=== PATIENT | female | born 1985 | race American Indian/Alaskan Native ===

== ENCOUNTER 2017-06-21 21:48 | Inpatient (IN) | payer MEDICAID, MEDICARE, OTHER ==
[2017-06-21 21:48] VITALS: BMI 33.0
--- NOTE | 2017-06-21 22:39 | C.PDOC ---
History Of Present Illness 32 y/o female patient presents to the ER with pain and swelling in the left lower part of her leg. Patient had a chronic ulceration in her leg several years ago, and now noticed a second area anterior to the first that has developed into a nickel-sized abscess. Patient has a history of DVT in left lower leg going back to 2011 that developed after a , but it was never treated. Patient previously took blood thinners during second but stopped taking them after . Patient was last seen in October 2014 for leg swelling and was given Xarelto but never filled prescription. Patient has had other ER visits for suicidal ideation and has a Hx of schizophrenia and bipolar disorder. Time Seen by Provider: 06/21/17 22:08 Chief Complaint (Nursing): Abnormal Skin Integrity History Per: Patient History/Exam Limitations: no limitations Onset/Duration Of Symptoms: Days Current Symptoms Are (Timing): Still Present Location Of Injury: Left: Leg Recent travel outside of the [place]: No Past Medical History Reviewed: Historical Data, Nursing Documentation, Vital Signs Vital Signs: Last Vital Signs Temp 98.4 F 06/21/17 21:58 Pulse 97 H 06/21/17 21:58 Resp 20 06/21/17 21:58 BP 118/76 06/21/17 21:58 Pulse Ox 100 06/21/17 23:02 - Medical History PMH: Bipolar Disorder, Deep Vein Thrombosis, Schizophrenia Surgical History: No Surg Hx Family History: States: Unknown Family Hx - Social History Hx Tobacco Use: No Hx Alcohol Use: No (denies) Hx Substance Use: Yes (denies) - Immunization History Hx Tetanus Toxoid Vaccination: No Hx Influenza Vaccination: No Hx Pneumococcal Vaccination: No Review Of Systems Except As Marked, All Systems Reviewed And Found Negative. Constitutional: Negative for: Fever, Chills Cardiovascular: Negative for: Chest Pain Gastrointestinal: Negative for: Nausea, Vomiting Musculoskeletal: Positive for: Leg Pain (pain in lower left leg) Skin: Positive for: Other (swelling in left lower leg) Physical Exam - Physical Exam Appears: Non-toxic, No Acute Distress Skin: Normal Color, Warm, Dry Head: Atraumatic, Normacephalic Oral Mucosa: Moist Chest: Symmetrical Cardiovascular: Rhythm Regular Respiratory: Normal Breath Sounds Gastrointestinal/Abdominal: Soft, No Tenderness Extremity: Swelling Extremity: Left: Other (nickel sized abscess in left lower leg, leg is hot, diffusely tender, and red) Neurological/Psych: Oriented x3, Normal Speech, Normal Cognition ED Course And Treatment - Laboratory Results Result Diagrams: 06/21/17 23:56 Lab Interpretation: No Acute Changes O2 Sat by Pulse Oximetry: 100 (room air) Pulse Ox Interpretation: Normal Reevaluation Time: 00:33 Reassessment Condition: Unchanged - Physician Consult Information Time Consulting Physician Contacted: 00:33 Physician Contacted: Carlos Pastrana Outcome Of Conversation: Patient to be admitted for treatment of chronic leg wound and possible chronic DVT. Medical Decision Making Medical Decision Making: Plans-Blood tests Disposition - Disposition Disposition: HOSPITALIZED Disposition Time: 00:33 Condition: STABLE - Clinical Impression Clinical Impression: Cellulitis, Chronic ulcer of left leg, Left leg swelling
[2017-06-22 00:01] LABS: BASO % 0.3 % (0.0-2.0); EOS # 0.1 K/uL (0.0-0.7); EOS % 0.5 % (0.0-4.0); LYMPH # 1.9 K/uL (1.0-4.3); LYMPH % 17.7 % (20.0-40.0); MEAN CELL VOLUME 97.5 fL (81.0-99.0); MEAN CORPUSCULAR HEMOGLOBIN 32.5 pg (27.0-31.0); MEAN CORPUSCULAR HGB CONC 33.4 g/dL (33.0-37.0); MEAN PLATELET VOLUME 10.7 fL (7.2-11.7); MONO # 0.9 K/uL (0.0-0.8); MONO % 8.4 % (0.0-10.0); RED CELL DISTRIBUTION WIDTH 12.8 % (11.5-14.5); WHITE BLOOD COUNT 10.6 K/uL (4.8-10.8)
[2017-06-22 00:08] LABS: CHLORIDE 100 mmol/L (98-107); INR 1.1; POTASSIUM 3.5 mmol/L (3.6-5.2); SODIUM 139 mmol/L (132-148)
[2017-06-22 00:10] LABS: ALB/GLOB RATIO 1.2 (1.0-2.1); AST/SGOT 17 U/L (14-36); BILIRUBIN,TOTAL 0.7 mg/dL (0.2-1.3); CARBON DIOXIDE 25 mmol/L (22-30); GFR AFRICAN-AMERICAN > 60; TOTAL PROTEIN 8.3 g/dL (6.3-8.3)
[2017-06-22 00:11] LABS: ALKALINE PHOSPHATASE 70 U/L (38-126); ALT/SGPT 26 U/L (9-52); BLOOD UREA NITROGEN 9 mg/dL (7-17); CALCIUM 9.5 mg/dl (8.6-10.4); GLUCOSE,RANDOM 75 mg/dL (65-105)
[2017-06-22] MEDS ORDERED: Enoxaparin 40 mg Syringe SC STA (00:30)
[2017-06-22] MEDS: Clindamycin 600mg/50ml D5W 600 MG/50 ML VIAL IVPB SCH ×3 (02:00→13:38)
[2017-06-22 09:00] LABS: BASO % 0.4 % (0.0-2.0); EOS # 0.1 K/uL (0.0-0.7); EOS % 0.6 % (0.0-4.0); HEMATOCRIT 35.5 % (34.0-47.0); LYMPH # 1.5 K/uL (1.0-4.3); MEAN CELL VOLUME 97.5 fL (81.0-99.0); MEAN CORPUSCULAR HEMOGLOBIN 32.5 pg (27.0-31.0); MEAN CORPUSCULAR HGB CONC 33.3 g/dL (33.0-37.0); MEAN PLATELET VOLUME 11.3 fL (7.2-11.7); MONO # 0.9 K/uL (0.0-0.8); MONO % 9.9 % (0.0-10.0); RED CELL DISTRIBUTION WIDTH 12.9 % (11.5-14.5); WHITE BLOOD COUNT 8.9 K/uL (4.8-10.8)
[2017-06-22 09:17] LABS: CHLORIDE 100 mmol/L (98-107)
[2017-06-22 09:18] LABS: POTASSIUM 3.1 mmol/L (3.6-5.2); SODIUM 134 mmol/L (132-148)
[2017-06-22 09:20] LABS: ALB/GLOB RATIO 1.5 (1.0-2.1); ALKALINE PHOSPHATASE 68 U/L (38-126); AST/SGOT 16 U/L (14-36); BILIRUBIN,TOTAL 0.8 mg/dL (0.2-1.3); BLOOD UREA NITROGEN 8 mg/dL (7-17); CALCIUM 8.7 mg/dl (8.6-10.4); CARBON DIOXIDE 24 mmol/L (22-30); GFR AFRICAN-AMERICAN > 60; GLUCOSE,RANDOM 89 mg/dL (65-105); TOTAL PROTEIN 6.6 g/dL (6.3-8.3)
[2017-06-22 09:21] LABS: ALT/SGPT 24 U/L (9-52)
[2017-06-22] MEDS: Potassium Chloride 20 mEq ER Tab PO SCH ×3 (11:09→18:51)
[2017-06-22] MEDS: Acetaminophen-Codeine 300/30 mg Tab PO PRN ×2 (11:09→18:51)
--- NOTE | 2017-06-22 21:02 | CP.PCM.HP ---
History of Present Illness - History of Present Illness History of Present Illness: CC: Left leg pain HPI: 32 y/o AA female patient presents to the ER with pain and swelling in the left lower part of her leg. Patient had a chronic ulceration in her leg several years ago, and now noticed a second area anterior to the first that has developed into a nickel-sized abscess. Patient has a history of DVT in left lower leg going back to 2011 that developed after a , but it was never treated. Patient previously took blood thinners (Xeralto) during second but stopped taking them after . Patient was last seen in October 2014 for leg swelling and was given Xarelto but never filled prescription. Patient has had other ER visits for suicidal ideation and has a Hx of schizophrenia and bipolar disorder.Pt had h/o multiple hospitalizations. she denies any fever, chills, rigors Present on Admission - Present on Admission Any Indicators Present on Admission: Yes Review of Systems - Review of Systems Systems not reviewed;Unavailable: Acuity of Condition - Constitutional Constitutional: Fatigue, Fever, Lethargy, Weakness - EENT Eyes: absent: As Per HPI, Blind Spots, Blurred Vision, Change in Vision, Decreased Night Vision, Diplopia, Discharge, Dry Eye, Exophthalmos, Floaters, Irritation, Itchy Eyes, Loss of Peripheral Vision, Pain, Photophobia, Requires Corrective Lenses, Sees Flashes, Spots in Vision, Tunnel Vision, Other Visual Disturbances, Loss of Vision, Other Ears: absent: As Per HPI, Decreased Hearing, Ear Discharge, Ear Pain, Tinnitus, Abnormal Hearing, Disequilibrium, Dizziness, Other Nose/Mouth/Throat: absent: As Per HPI, Epistaxis, Nasal Congestion, Nasal Discharge, Nasal Obstruction, Nasal Trauma, Nose Pain, Post Nasal Drip, Sinus Pain, Sinus Pressure, Bleeding Gums, Change in Voice, Dental Pain, Dry Mouth, Dysphagia, Halitosis, Hoarsness, Lip Swelling, Mouth Lesions, Mouth Pain, Odynophagia, Sore Throat, Throat Swelling, Tongue Swelling, Facial Pain, Neck Pain, Neck Mass, Other - Cardiovascular Cardiovascular: Leg Edema - Respiratory Respiratory: absent: As Per HPI, Cough, Dyspnea, Hemoptysis, Dyspnea on Exertion , Wheezing, Snoring, Stridor, Pain on Inspiration, Chest Congestion, Excessive Mucous Production, Change in Mucous Color, Pain with Coughing, Other - Gastrointestinal Gastrointestinal: absent: As Per HPI, Abdominal Pain, Belching, Bloating, Change in Bowel Habits, Change in Stool Character, Coffee Ground Emesis, Constipation, Cramping, Diarrhea, Dyspepsia, Dysphagia, Early Satiety, Excessive Flatus, Fecal Incontinence, Heartburn, Hematemesis, Hematochezia, Loose Stools, Melena, Nausea, Odynophagia, Temesmus, Vomiting, Other Past Patient History - Infectious Disease Hx of Infectious Diseases: None - Past Medical History & Family History Past Medical History?: Yes - Past Social History Smoking Status: Light Smoker < 10 Cigarettes Daily - CARDIAC Hx Cardiac Disorders: No Hx Hypertension: No - PULMONARY Hx Respiratory Disorders: No Hx Tuberculosis: No - NEUROLOGICAL Hx Neurological Disorder: No Hx Seizures: No - HEENT Hx HEENT Problems: No - RENAL Hx Chronic Kidney Disease: No - ENDOCRINE/METABOLIC Hx Endocrine Disorders: No - HEMATOLOGICAL/ONCOLOGICAL Hx Blood Disorders: No Hx Human Immunodeficiency Virus (HIV): No - INTEGUMENTARY Hx Dermatological Problems: No - MUSCULOSKELETAL/RHEUMATOLOGICAL Hx Musculoskeletal Disorders: No Hx Falls: No - GASTROINTESTINAL Hx Gastrointestinal Disorders: No - GENITOURINARY/GYNECOLOGICAL Hx Genitourinary Disorders: No Hx Sexually Transmitted Disorders: No - PSYCHIATRIC Hx Psychophysiologic Disorder: No Hx Bipolar Disorder: Yes Hx Schizophrenia: Yes Hx Substance Use: Yes (denies) - SURGICAL HISTORY Hx Section: Yes (x5) - ANESTHESIA Hx Anesthesia: Yes Hx Anesthesia Reactions: No Hx Malignant Hyperthermia: No Meds Allergies/Adverse Reactions: Allergies Allergy/AdvReac Type Severity Reaction Status Date / Time No Known Allergies Allergy Verified 02/18/16 20:26 Physical Exam - Constitutional Appears: No Acute Distress - Head Exam Head Exam: ATRAUMATIC, NORMAL INSPECTION, NORMOCEPHALIC - Eye Exam Eye Exam: EOMI, Normal appearance, PERRL Pupil Exam: NORMAL ACCOMODATION, PERRL - Respiratory Exam Respiratory Exam: Clear to Auscultation Bilateral, NORMAL BREATHING PATTERN - Cardiovascular Exam Cardiovascular Exam: REGULAR RHYTHM, +S1, +S2 - GI/Abdominal Exam GI & Abdominal Exam: Normal Bowel Sounds, Soft. absent: Tenderness - Extremities Exam Extremities exam: Positive for: calf tenderness Additional comments: 1x1 ivch wound on left calf with chronic changes no discharge - Back Exam Back exam: NORMAL INSPECTION Results - Vital Signs Recent Vital Signs: Last Vital Signs Temp 97.7 F 06/22/17 15:00 Pulse 73 06/22/17 15:00 Resp 20 06/22/17 15:00 BP 112/72 06/22/17 15:00 Pulse Ox 98 06/22/17 15:00 - Labs Result Diagrams: 06/22/17 08:43 06/22/17 08:43 Labs: Laboratory Results - last 24 hr 06/21/17 06/21/17 06/21/17 23:56 23:56 23:56 WBC 10.6 RBC 3.80 Hgb 12.4 Hct 37.0 MCV 97.5 MCH 32.5 H MCHC 33.4 RDW 12.8 Plt Count 177 MPV 10.7 Neut % (Auto) 73.1 Lymph % (Auto) 17.7 L [place] % (Auto) 8.4 Eos % (Auto) 0.5 Baso % (Auto) 0.3 Neut # 7.8 H Lymph # 1.9 [place] # 0.9 H Eos # 0.1 Baso # 0.0 PT 12.4 H INR 1.1 D-Dimer, Quantitative < 200 Sodium 139 Potassium 3.5 L Chloride 100 Carbon Dioxide 25 Anion Gap 18 BUN 9 Creatinine 0.7 Est GFR ( Amer) > 60 Est GFR (Non-Af Amer) > 60 Random Glucose 75 Calcium 9.5 Total Bilirubin 0.7 AST 17 ALT 26 Alkaline Phosphatase 70 Total Creatine Kinase 202 H Total Protein 8.3 Albumin 4.6 Globulin 3.7 Albumin/Globulin Ratio 1.2 06/22/17 06/22/17 08:43 08:43 WBC 8.9 RBC 3.64 L Hgb 11.8 Hct 35.5 MCV 97.5 MCH 32.5 H MCHC 33.3 RDW 12.9 Plt Count 179 MPV 11.3 Neut % (Auto) 72.1 Lymph % (Auto) 17.0 L [place] % (Auto) 9.9 Eos % (Auto) 0.6 Baso % (Auto) 0.4 Neut # 6.4 Lymph # 1.5 [place] # 0.9 H Eos # 0.1 Baso # 0.0 PT INR D-Dimer, Quantitative Sodium 134 Potassium 3.1 L Chloride 100 Carbon Dioxide 24 Anion Gap 13 BUN 8 Creatinine 0.7 Est GFR ( Amer) > 60 Est GFR (Non-Af Amer) > 60 Random Glucose 89 Calcium 8.7 Total Bilirubin 0.8 AST 16 ALT 24 Alkaline Phosphatase 68 Total Creatine Kinase Total Protein 6.6 Albumin 4.0 Globulin 2.6 Albumin/Globulin Ratio 1.5 Assessment & Plan (1) Cellulitis Status: Acute (2) Chronic ulcer of left leg Assessment and Plan: rule out DVT XARELTO DOPPLER Status: Acute (3) Anxiety Status: Acute (4) Deep venous thrombosis of lower extremity Status: Acute
[2017-06-23] MEDS: Clindamycin 600mg/50ml NS 600 MG/50 ML BAG IVPB SCH ×5 (02:19→20:13)
[2017-06-23] MEDS: Acetaminophen-Codeine 300/30 mg Tab PO PRN ×2 (11:33→20:12)
--- NOTE | 2017-06-23 14:22 | VASCLAB ---
PROCEDURE: Lower Extremity Venous Duplex Exam. HISTORY: Leg pain PRIORS: None. TECHNIQUE: Bilateral common femoral, femoral, popliteal and posterior tibial, peroneal and great saphenous veins were evaluated. Flow was assessed with color Doppler, compressibility, assessment of phasic flow and augmentation response. Report prepared by TEO Mishra, RVT FINDINGS: RIGHT: 1. Common Femoral Vein: 1.1. Compressibility - Fully compressible: Thrombus - None : Flow - Phasic: Augmentation -Normal: Reflux - None. 2. Femoral Vein: 2.1. Compressibility - Fully compressible: Thrombus - None : Flow - Phasic: Augmentation -Normal: Reflux - None. 3. Popliteal Vein: 3.1. Compressibility - Fully compressible: Thrombus - None : Flow - Phasic: Augmentation -Normal: Reflux - None. 4. Posterior Tibial Vein: 4.1. Compressibility - Fully compressible: Thrombus - None: Flow - Phasic: Augmentation -Normal: Reflux - None. 5. Peroneal Vein: 5.1. Compressibility - Fully compressible: Thrombus - None: Flow - Phasic: Augmentation -Normal: Reflux - None. 6. Great Saphenous Vein: 6.1. Compressibility - Fully compressible: Thrombus - None: Flow - Phasic: Augmentation - Normal: Reflux - None. LEFT: 1. Common Femoral Vein: 1.1. Compressibility - Partial: Thrombus - Chronic: Flow - Reduced : Augmentation -Reduced: Reflux - None. 2. Femoral Vein: 2.1. Compressibility - Partial: Thrombus - Chronic: Flow - Reduced : Augmentation -Normal: Reflux - Severe. 3. Popliteal Vein: 3.1. Compressibility - Fully compressible: Thrombus - None : Flow - Phasic: Augmentation -Normal: Reflux - Severe. 4. Posterior Tibial Vein: 4.1. Compressibility - Fully compressible: Thrombus - None: Flow - Phasic: Augmentation -Normal: Reflux - None. 5. Peroneal Vein: 5.1. Compressibility - Fully compressible: Thrombus - None: Flow - Phasic: Augmentation -Normal: Reflux - None. 6. Great Saphenous Vein: 6.1. Compressibility - Fully compressible: Thrombus - None: Flow - Phasic: Augmentation - Normal: Reflux - None. OTHER FINDINGS: BRUCE De La Paz notified about the findings. Left: Severe valvular incompetence of the left femoral and popliteal veins. IMPRESSION: Right: No evidence of deep or superficial vein thrombosis of the right lower extremity. Normal valve function noted of the right side. 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
[2017-06-23] MEDS: Potassium Chloride 20 mEq ER Tab PO SCH ×2 (16:25→20:13)
--- NOTE | 2017-06-23 23:03 | CP.PCM.PN ---
Subjective - Date & Time of Evaluation Date of Evaluation: 06/23/17 Time of Evaluation: 17:20 - Subjective Subjective: PT SEEN & EXAMINED AT BEDSIDE Objective - Vital Signs/Intake and Output Vital Signs (last 24 hours): Temp Pulse Resp BP Pulse Ox 97.7 F 67 20 105/69 97 06/23/17 16:37 06/23/17 16:37 06/23/17 16:37 06/23/17 16:37 06/23/17 16:37 - Medications Medications: Current Medications Acetaminophen/Codeine Phosphate (Tylenol/Codeine 300 Mg/30 Mg) 2 ea PO Q6 PRN PRN Reason: Pain, moderate (4-7) Last Admin: 06/23/17 20:12 Dose: 2 ea Clindamycin Phosphate (Cleocin In Normal Saline Addvantage) 600 mg in 50 mls @ 100 mls/hr IVPB Q6H [facility] Last Admin: 06/23/17 20:13 Dose: 100 mls/hr Potassium Chloride (K-Dur 20 Meq Er Tab) 40 meq PO Q4 [facility] Stop: 06/24/17 00:01 Last Admin: 06/23/17 20:13 Dose: 40 meq Rivaroxaban (Xarelto) 15 mg PO BID [facility] Last Admin: 06/23/17 18:56 Dose: 15 mg - Labs Labs: 06/22/17 08:43 06/22/17 08:43 PT 12.4 SECONDS (9.7-12.2) H 06/21/17 23:56 INR 1.1 06/21/17 23:56 Assessment and Plan (1) Cellulitis Status: Acute (2) Chronic ulcer of left leg Status: Acute (3) Anxiety Status: Acute (4) Deep venous thrombosis of lower extremity Status: Acute
[2017-06-24] MEDS: Potassium Chloride 20 mEq ER Tab PO SCH (00:48)
[2017-06-24] MEDS: Clindamycin 600mg/50ml NS 600 MG/50 ML BAG IVPB SCH ×2 (05:40→08:45)
[2017-06-24 08:32] VITALS: BP 112/72; PULSE 123; RESP 20; TEMP 97.6; O2SAT 96
[2017-06-24] MEDS: Acetaminophen-Codeine 300/30 mg Tab PO PRN (08:46)
--- NOTE | 2017-06-24 13:28 | CP.PCM.PN ---
Subjective - Date & Time of Evaluation Date of Evaluation: 06/24/17 Time of Evaluation: 13:28 - Subjective Subjective: Alert, awake, no acute pain on the left leg with cellulitis and DVT. Objective - Vital Signs/Intake and Output Vital Signs (last 24 hours): Temp Pulse Resp BP Pulse Ox 97.6 F 123 H 20 112/72 96 06/24/17 08:30 06/24/17 08:30 06/24/17 08:30 06/24/17 08:30 06/24/17 08:30 - Medications Medications: Current Medications Acetaminophen/Codeine Phosphate (Tylenol/Codeine 300 Mg/30 Mg) 2 ea PO Q6 PRN PRN Reason: Pain, moderate (4-7) Last Admin: 06/24/17 08:46 Dose: 2 ea Clindamycin Phosphate (Cleocin In Normal Saline Addvantage) 600 mg in 50 mls @ 100 mls/hr IVPB Q6H [facility] Last Admin: 06/24/17 08:45 Dose: Not Given Rivaroxaban (Xarelto) 15 mg PO BID [facility] Last Admin: 06/24/17 09:23 Dose: 15 mg - Labs Labs: 06/22/17 08:43 06/22/17 08:43 PT 12.4 SECONDS (9.7-12.2) H 06/21/17 23:56 INR 1.1 06/21/17 23:56 Assessment and Plan - Assessment and Plan (Free Text) Assessment: Patient is seen and examined. Alert and orientedx3, has a dry wound on the left leg. D/W DR Pastrana, discharge plan for today on po clindamycin and eliquis for chronic DVT. Advised to follow up in the office in 1 week.
== END 2017-06-24 13:45 | disposition home or self-care (01) | DRG 603 ==
LOC: C.ER 21:48 → C.9E 06-22 00:47 → C.5S 06-22 01:24
PROVIDERS: ADMIT Internal Medicine; ATTEND Internal Medicine
DX: L03.116 Cellulitis of left lower limb (principal); I82.512 Chronic embolism and thrombosis of left femoral vein; L97.929 Non-pressure chronic ulcer of unspecified part of left lower leg with unspecified severity; F17.210 Nicotine dependence, cigarettes, uncomplicated; F20.9 Schizophrenia, unspecified; F31.9 Bipolar disorder, unspecified; F41.9 Anxiety disorder, unspecified; K21.9 Gastro-esophageal reflux disease without esophagitis